=== PATIENT | male | born 1960 | race Caucasian/White ===

== ENCOUNTER 2025-05-19 13:17 | Outpatient (CLI) | payer BC | END 2025-05-19 13:18 | disposition home or self-care (01) | LOC: CT 13:17 | PROVIDERS: ATTEND Student in an Organized Health Care Education/Training Program | DX: Z12.2 Encounter for screening for malignant neoplasm of respiratory organs (principal); F17.210 Nicotine dependence, cigarettes, uncomplicated; J43.9 Emphysema, unspecified | CPT/HCPCS: 71271 ==